=== PATIENT | male | born 1995 | race Caucasian/White ===

== ENCOUNTER 2019-04-11 17:54 | Emergency (ER) | payer MEDICAID ==
[~2019-04-11] VITALS: Ht 177.8 cm; Wt 79.4 kg
[2019-04-11 17:58] VITALS: BP_SYST 132
--- NOTE | 2019-04-11 18:01 | NUR ---
Patient triaged and placed in waiting room. VSS and patient appears in no acute distress at this time. Accompanied by self, awaiting available bed, and MD notified of need for MSE.
--- NOTE | 2019-04-11 20:09 | NUR ---
Luisa robledo in EDM - 04/11/19 at 2013 by TISH Pt placed to [facility] . Report given to JASON Zaldivar.
--- NOTE | 2019-04-11 20:09 | NUR ---
Luisa robledo in EDM - 04/11/19 at 2018 by [email or web address] Called pt for room placement. Pt not present to ER waiting room or outside of ER.
--- NOTE | 2019-04-11 20:18 | NUR ---
Pt placed to ER bed 08. Report given to JASON Zaldivar.
--- NOTE | 2019-04-11 20:20 | NUR ---
Pt AAOx4 ambualted into ED c/o difficulty breathing/SOB x 2-3 days which is worse when lying down. Denies cough/fever/chills/cold. No other injuries/complaints per pt/noted. Will continue to monitor.
--- NOTE | 2019-04-11 21:15 | NUR ---
ER Dr. Barnett at bedside examining patient.
[2019-04-11 22:42] VITALS: BP_SYST 132
--- NOTE | 2019-04-11 22:42 | NUR ---
Patient given written and verbal discharge instructions and verbalizes understanding. ER MD discussed with patient the results and treatment provided. Patient in stable condition. ID arm band removed. Patient educated on pain management and to follow up with PMD. Pain Scale 0/10. Opportunity for questions provided and answered. Medication side effect fact sheet provided.
== END 2019-04-11 22:42 | disposition home or self-care (01) ==
LOC: SED 17:54
DX: R06.02 Shortness of breath (principal); I10 Essential (primary) hypertension; F17.210 Nicotine dependence, cigarettes, uncomplicated; Z71.6 Tobacco abuse counseling
CPT/HCPCS: 71046-TC; 99283

== ENCOUNTER 2024-03-01 03:25 | Emergency (ER) | payer SELFPAY ==
[~2024-03-01] VITALS: Ht 177.8 cm; Wt 88.5 kg
[2024-03-01 03:29] VITALS: BP_SYST 148; PULSE 83; RESP 17; TEMP 98.8; O2SAT 97
[2024-03-01] MEDS ORDERED: IBUP-1971 PO (04:04)
[2024-03-01] MEDS: KETOROLAC TROMETHAMINE 60 MG/2 ML VIAL IM ONE (04:05)
[2024-03-01 04:17] VITALS: BP_SYST 148; PULSE 83; RESP 17; TEMP 98.8; O2SAT 97
== END 2024-03-01 04:17 | disposition home or self-care (01) ==
LOC: SED 03:25
DX: M54.2 Cervicalgia (principal); R51.9 Headache, unspecified; R42 Dizziness and giddiness; R11.0 Nausea; R03.0 Elevated blood-pressure reading, without diagnosis of hypertension; F17.210 Nicotine dependence, cigarettes, uncomplicated
CPT/HCPCS: 99283; 96372; J1885